=== PATIENT | male | born 1995 ===

== ENCOUNTER 2022-11-04 14:58 | Emergency (ER) | payer SELFPAY ==
--- NOTE | 2022-11-04 15:07 | PC.NURSE ---
Pt left prior to being triaged to go to [facility] due to full waiting room.
== END 2022-11-04 16:17 | disposition left against medical advice (07) ==
LOC: ANHED 15:11
DX: Z53.21 Procedure and treatment not carried out due to patient leaving prior to being seen by health care provider (principal)
CPT/HCPCS: 99199